=== PATIENT | male | born 1980 | race Caucasian/White ===

== ENCOUNTER 2024-09-03 01:24 | Emergency (ER) | payer SELFPAY ==
[~2024-09-03] VITALS: Ht 185.4 cm; Wt 117.9 kg
[2024-09-03 01:25] VITALS: TEMP 98.1
[2024-09-03] MEDS: SODIUM CHLORIDE 0.9% 1000ML 1,000 ML IV STA (01:45)
[2024-09-03 01:58] LABS: BASOPHILS # (AUTO) 0.1 (0.0-0.1); BASOPHILS % 0.9 % (0.0-1.0); EOSINOPHILS # (AUTO) 0.4 (0.0-0.4); EOSINOPHILS % 6.3 % (0.0-6.0); HEMATOCRIT 48.4 % (38.2-49.6); HEMOGLOBIN 16.2 g/dL (14.0-18.0); LYMPHOCYTES # (AUTO) 3.2 (1.0-3.2); LYMPHOCYTES % 46.3 % (18.0-39.1); MEAN CORPUSCULAR HEMOGLOBIN 30.5 pg (28-32); MEAN CORPUSCULAR HGB CONC 33.5 g/dL (31-35); MEAN CORPUSCULAR VOLUME 91.1 fL (81-99); MONOCYTES # (AUTO) 0.7 (0.2-0.8); MONOCYTES % 9.8 % (4.4-11.3); NEUTROPHILS # (AUTO) 2.5 (2.1-6.9); NEUTROPHILS % 36.6 % (38.7-80.0); PLATELET COUNT 187 x10e3/uL (140-360); RED BLOOD COUNT 5.31 x10e6/uL (4.3-5.7); WHITE BLOOD COUNT 6.93 x10e3/uL (4.8-10.8)
[2024-09-03 02:15] LABS: ALANINE AMINOTRANSFERASE 37 IU/L (0-55); ALBUMIN 4.5 g/dL (3.5-5.0); ALBUMIN/GLOBULIN RATIO 1.6 (0.8-2.0); ALKALINE PHOSPHATASE 80 IU/L (40-150); ANION GAP 15.7 mmol/L (8-16); BILIRUBIN,TOTAL 0.7 mg/dL (0.2-1.2); BLOOD UREA NITROGEN 16 mg/dL (7-26); BUN/CREATININE RATIO 15 (6-25); CALCIUM 9.5 mg/dL (8.4-10.2); CARBON DIOXIDE 25 mmol/L (22-29); CHLORIDE 106 mmol/L (98-107); CREATINE KINASE 208 IU/L (30-200); CREATININE, SERUM 1.08 mg/dL (0.72-1.25); EST GLOMERULAR FILTRATION RATE 87 ML/MIN (>=60); GLUCOSE 108 mg/dL (74-118); POTASSIUM 3.7 mmol/L (3.5-5.1); SODIUM 143 mmol/L (136-145); TOTAL PROTEIN 7.3 g/dL (6.5-8.1)
[2024-09-03 02:25] LABS: TROPONIN I < 0.05 ng/mL (0.0-0.40)
[2024-09-03 02:50] VITALS: PULSE 71; RESP 14; O2SAT 100
== END 2024-09-03 03:01 | disposition home or self-care (01) ==
LOC: ER 01:33
DX: R42 Dizziness and giddiness (principal); R00.2 Palpitations; R53.81 Other malaise; I10 Essential (primary) hypertension; F41.9 Anxiety disorder, unspecified; R94.31 Abnormal electrocardiogram [ECG] [EKG]
CPT/HCPCS: 36415; 71045; 80053; 82550; 83690; 83880; 84484; 85025; 93005; 99284; J7030

== ENCOUNTER 2024-10-27 15:29 | Emergency (ER) | payer SELFPAY ==
[~2024-10-27] VITALS: Ht 185.4 cm; Wt 117.9 kg
[2024-10-27 15:35] VITALS: PULSE 95; RESP 15; TEMP 97.6
[2024-10-27 16:11] LABS: BASOPHILS % 0.7 % (0.0-1.0); EOSINOPHILS # (AUTO) 0.2 (0.0-0.4); EOSINOPHILS % 3.4 % (0.0-6.0); HEMATOCRIT 47.9 % (38.2-49.6); LYMPHOCYTES # (AUTO) 1.5 (1.0-3.2); LYMPHOCYTES % 26.6 % (18.0-39.1); MEAN CORPUSCULAR HEMOGLOBIN 30.7 pg (28-32); MEAN CORPUSCULAR HGB CONC 35.5 g/dL (31-35); MEAN CORPUSCULAR VOLUME 86.5 fL (81-99); MONOCYTES # (AUTO) 0.4 (0.2-0.8); MONOCYTES % 7.8 % (4.4-11.3); NEUTROPHILS # (AUTO) 3.4 (2.1-6.9); NEUTROPHILS % 61.1 % (38.7-80.0); PLATELET COUNT 192 x10e3/uL (140-360); RED BLOOD COUNT 5.54 x10e6/uL (4.3-5.7); RED CELL DISTRIBUTION WIDTH 11.9 % (11.7-14.4); WHITE BLOOD COUNT 5.61 x10e3/uL (4.8-10.8)
[2024-10-27 16:25] LABS: ALBUMIN 4.5 g/dL (3.5-5.0); ALBUMIN/GLOBULIN RATIO 1.6 (0.8-2.0); ANION GAP 12.6 mmol/L (8-16); CALCIUM 9.5 mg/dL (8.4-10.2); CREATININE, SERUM 1.04 mg/dL (0.72-1.25); POTASSIUM 3.6 mmol/L (3.5-5.1); TOTAL PROTEIN 7.4 g/dL (6.5-8.1)
[2024-10-27 16:31] LABS: TROPONIN I 0.017 ng/mL (0-0.300)
[2024-10-27 16:59] VITALS: BP 128/97; PULSE 91; RESP 17; O2SAT 100
== END 2024-10-27 16:56 | disposition home or self-care (01) ==
LOC: ER 15:33
DX: R07.9 Chest pain, unspecified (principal); I10 Essential (primary) hypertension; F41.9 Anxiety disorder, unspecified; R94.31 Abnormal electrocardiogram [ECG] [EKG]
CPT/HCPCS: 36415; 71045; 80053; 80320; 82550; 84484; 85025; 93005; 99284